=== PATIENT | female | born 1955 | race Caucasian/White ===

== ENCOUNTER 2019-04-01 09:06 | Day surgery (SDC) | payer MEDICARE ==
[2019-03-27 11:43] VITALS: BMI 25.4
[2019-04-01] MEDS ORDERED: Fentanyl 100 MCG/2 ML VIAL ONE ×2 (09:28→11:14)
[2019-04-01] MEDS ORDERED: Midazolam HCl 2 mg/2 ml Vial ONE (09:28)
[2019-04-01] MEDS ORDERED: Heparin 5,000 UNITS/ML VIAL ONE (10:07)
[2019-04-01] MEDS ORDERED: HYDROcodone/Acetaminophen 10/325 mg Tablet PO PRN ×2 (10:22)
[2019-04-01] MEDS ORDERED: Ropivacaine 0.2% 550 ML 550 ML NERVE BLCK SCH (10:22)
[2019-04-01] MEDS ORDERED: Promethazine HCl 25 MG/ML VIAL IM PRN (10:22)
[2019-04-01] MEDS ORDERED: Ondansetron PF 4 MG/2 ML Vial IVP PRN (10:22)
[2019-04-01] MEDS ORDERED: traMADol HCl 50 MG TAB PO PRN ×2 (10:22)
[2019-04-01] MEDS ORDERED: Zolpidem Tartrate 5 MG TAB PO PRN (10:22)
[2019-04-01] MEDS ORDERED: Acetaminophen 325 MG TAB PO PRN (10:23)
[2019-04-01] MEDS ORDERED: Fentanyl 100 MCG/2 ML VIAL SLOW IVP PRN (10:23)
[2019-04-01] MEDS ORDERED: Bupivacaine 0.25% HCL 30 ML VIAL ONE (10:58)
[2019-04-01] MEDS ORDERED: Lidocaine 1% w/Epinephrine 1:100K 20 ML VIAL ONE (10:58)
[2019-04-01] MEDS ORDERED: Sodium Chloride 0.9% 0 ML ONE ×2 (10:58→14:54)
[2019-04-01] MEDS ORDERED: Gentamicin 80 MG/2 ML VIAL ONE (10:58)
[2019-04-01] MEDS ORDERED: Ropivacaine 0.2% HCl/PF 0 ML ONE (11:47)
[2019-04-01] MEDS ORDERED: Ketorolac Tromethamine 30 MG/ML VIAL IVP SCH (12:00)
[2019-04-01] MEDS ORDERED: Ondansetron PF 4 MG/2 ML Vial ONE (14:10)
[2019-04-01] MEDS ORDERED: PROPOFOL 200 MG/20 ML VIAL ONE (14:10)
[2019-04-01] MEDS ORDERED: Dexamethasone 20 MG/5 ML VIAL ONE (14:10)
[2019-04-01] MEDS ORDERED: Lidocaine 1% PF 5 ML VIAL ONE (14:10)
[2019-04-01] MEDS ORDERED: Ropivacaine 0.2% HCl/PF (40 MG/20 ML VIAL) ONE (14:10)
[2019-04-01] MEDS ORDERED: Ropivacaine 0.5% HCl/PF (150 MG/30 ML VIAL) ONE (14:10)
[2019-04-01] MEDS ORDERED: Sodium Chloride 0.9% 10 ML ONE (14:55)
--- NOTE | 2019-04-01 18:54 | OP ---
DATE OF PROCEDURE: 04/01/2019 PREOPERATIVE DIAGNOSIS: Left breast cancer. POSTOPERATIVE DIAGNOSIS: Left breast cancer. PROCEDURE PERFORMED: Placement of left tissue building construction supervisor for breast reconstruction ([id number]). OPERATIVE FINDINGS: Left breast tissue building construction supervisor, reference #[id number], serial #[id number] filled to a volume of 500 mL. DESCRIPTION OF PROCEDURE: Following induction of adequate anesthesia, the patient was prepped and draped in usual sterile fashion in the supine position. The existing inframammary crease scar was incised. Dissection was carried sharply down through the subcutaneous tissue to identify the pectoralis fascia. Subsequently, an adequate prepectoral pocket was created. Pocket was copiously irrigated and inspected with triple antibiotic solution and dilute Betadine solution prior to placement of antibiotic beads and building construction supervisor. The building construction supervisor was secured in the proper position using interrupted 2-0 Prolene suture at the suture tabs. The incision was then closed in layers using 2-0 and 3-0 PDS suture for the deeper layers followed by 4-0 Monocryl for the skin. Job ID: [id number]
== END 2019-04-01 15:14 | disposition home or self-care (01) ==
LOC: SDC 09:06
PROVIDERS: ATTEND Plastic Surgery
PROC: 0HHU0NZ Insertion of Tissue Expander into Left Breast, Open Approach (ICD-10-PCS; principal; 2019-04-01)
DX: C50.912 Malignant neoplasm of unspecified site of left female breast (principal); E78.5 Hyperlipidemia, unspecified; E03.9 Hypothyroidism, unspecified; E66.3 Overweight; Z68.25 Body mass index [BMI] 25.0-25.9, adult; Z79.2 Long term (current) use of antibiotics; Z79.811 Long term (current) use of aromatase inhibitors; Z79.899 Other long term (current) drug therapy
CPT/HCPCS: 19357; 93005; A4306; 93010; C1713; J0690; J1100; J1580; J1644; J2001; J2250; J2405; J2704; J2795; J3010; J3370; J3490; S0020

== ENCOUNTER → 2019-09-11 | Outpatient (CLI) | payer MEDICARE, OTHER ==
[2019-09-11 17:17] LABS: SARS-CoV-2 MS2 Positive; SARS-CoV-2 N Gene Negative; SARS-CoV-2 S Gene Negative; SARS-CoV-2 orf1ab Negative
== END ==
LOC: LABBT 17:13
PROVIDERS: ATTEND Plastic Surgery
DX: Z01.812 Encounter for preprocedural laboratory examination (principal); Z11.59 Encounter for screening for other viral diseases; Z85.3 Personal history of malignant neoplasm of breast
CPT/HCPCS: 87635; U0003

== ENCOUNTER 2019-09-16 07:57 | Day surgery (SDC) | payer MEDICARE ==
[2019-09-11 11:23] VITALS: BMI 26.6
[2019-09-16] MEDS ORDERED: Heparin 5,000 UNITS/ML VIAL ONE (09:24)
[2019-09-16] MEDS ORDERED: Lidocaine 1% PF 5 ML VIAL ONE (10:11)
[2019-09-16] MEDS ORDERED: Ondansetron PF 4 MG/2 ML Vial ONE (10:11)
[2019-09-16] MEDS ORDERED: PROPOFOL 200 MG/20 ML VIAL ONE (10:11)
[2019-09-16] MEDS ORDERED: Dexamethasone 20 MG/5 ML VIAL ONE (10:11)
[2019-09-16] MEDS ORDERED: EPINEPHrine 1 MG/ML AMP ONE (10:36)
[2019-09-16] MEDS ORDERED: Bupivacaine 0.25% HCL 30 ML VIAL ONE (10:36)
[2019-09-16] MEDS ORDERED: Gentamicin 80 MG/2 ML VIAL ONE (10:44)
[2019-09-16] MEDS ORDERED: Fentanyl 100 MCG/2 ML VIAL ONE (11:25)
[2019-09-16] MEDS ORDERED: HYDROcodone/Acetaminophen 5/325 mg Tablet ONE (13:40)
--- NOTE | 2019-09-17 07:13 | OP ---
DATE OF PROCEDURE: 09/16/2019 PREOPERATIVE DIAGNOSIS: Left breast cancer. POSTOPERATIVE DIAGNOSIS: Left breast cancer. PROCEDURES PERFORMED: 1. Replacement of left tissue production truck driver with capsular work (39910). 2. Fat grafting, left breast (70 mL) ([id number], [id number]). DESCRIPTION OF PROCEDURE: Following the induction of adequate anesthesia, the patient was prepped and draped in the usual sterile fashion in supine position. The inframammary crease scar incision was made. Dissection was carried sharply down through the subcutaneous tissue to the underlying implant capsule, which was incised. The existing production truck driver was deflated and removed. The pocket was opened superiorly. A sizer was used to determine what implant would give the best symmetry. A [place] (reference number [id number], serial number [id number]) was chosen. It was placed after copious irrigation with antibiotic and dilute Betadine solution. The pocket was then closed with 3-0 PDS suture and 3-0 Monocryl suture. Attention was turned to the fat grafting. The abdomen was infiltrated. After the tumescent fluid had adequate time to take effect, a traditional liposuction was done with harvesting the fat. The fat was then injected in the subcutaneous plane using a micro-droplet technique over the inner as well as the upper two quadrants of the breast. 70 mL of fat was injected in total. This was done through a remote stab incision. All stab incisions were closed with 5-0 fast gut suture. The patient tolerated the procedure well. Job ID: [id number]
== END 2019-09-16 15:25 | disposition home or self-care (01) ==
LOC: SDC 07:57
PROVIDERS: ATTEND Plastic Surgery
PROC: 0HPU0JZ Removal of Synthetic Substitute from Left Breast, Open Approach (ICD-10-PCS; principal; 2019-09-16)
PROC: 0HRU0JZ Replacement of Left Breast with Synthetic Substitute, Open Approach (ICD-10-PCS; 2019-09-16)
PROC: 0HRU37Z Replacement of Left Breast with Autologous Tissue Substitute, Percutaneous Approach (ICD-10-PCS; 2019-09-16)
DX: C50.912 Malignant neoplasm of unspecified site of left female breast (principal); E07.9 Disorder of thyroid, unspecified; Z79.2 Long term (current) use of antibiotics; Z79.811 Long term (current) use of aromatase inhibitors; Z79.899 Other long term (current) drug therapy
CPT/HCPCS: 15771; 15772; 19342; C1789; J0171; J0690; J1100; J1580; J1642; J1644; J2001; J2405; J2704; J3010; J3370; S0020

== ENCOUNTER 2021-01-14 07:24 | Outpatient (CLI) | payer MEDICARE | END 2021-01-14 07:25 | disposition home or self-care (01) | LOC: BICMRI 07:24 | PROVIDERS: ATTEND Internal Medicine Hematology & Oncology | DX: C50.112 Malignant neoplasm of central portion of left female breast (principal); Z15.01 Genetic susceptibility to malignant neoplasm of breast | CPT/HCPCS: 82565; C8908; A9577 ==

== ENCOUNTER 2022-06-17 09:31 | Day surgery (SDC) | payer MEDICARE ==
[2022-06-16 13:05] VITALS: BMI 28.3
[2022-06-17] MEDS ORDERED: Heparin 5,000 UNITS/ML VIAL ONE (09:55)
[2022-06-17] MEDS ORDERED: Bupivacaine/Epinephrine 0.25% 30 ML VIAL ONE (11:35)
[2022-06-17] MEDS ORDERED: EPINEPHrine 1 MG/ML AMP ONE (11:35)
[2022-06-17] MEDS ORDERED: Lidocaine 1% (PF) 30 ML VIAL ONE (11:35)
[2022-06-17] MEDS ORDERED: Gentamicin 80 MG/2 ML VIAL ONE (11:35)
[2022-06-17] MEDS ORDERED: Bacitracin Zinc Ointment 30 gm TUBE ONE (11:35)
[2022-06-17] MEDS ORDERED: fentaNYL PF 100 MCG/2 ML SYRINGE ONE (11:55)
[2022-06-17] MEDS ORDERED: Dexmedetomidine 200 MCG/2 ML VIAL ONE (11:55)
[2022-06-17] MEDS ORDERED: CEFAZOLIN 2 GM VIAL ONE (12:09)
[2022-06-17] MEDS ORDERED: Sodium Chloride 0.9% 100 ML ONE (12:09)
[2022-06-17] MEDS ORDERED: Glycopyrrolate 0.2 MG/ML 5 ML SYRINGE ONE (12:20)
[2022-06-17] MEDS ORDERED: Ondansetron PF 4 MG/2 ML Vial ONE (12:20)
[2022-06-17] MEDS ORDERED: PHENYLEPHRINE-NS 100 MCG/ML 10 ML SYRINGE ONE (12:20)
[2022-06-17] MEDS ORDERED: Lidocaine 1% PF 5 ML VIAL ONE (12:20)
[2022-06-17] MEDS ORDERED: PROPOFOL 200 MG/20 ML VIAL ONE (12:20)
[2022-06-17] MEDS ORDERED: Tranexamic Acid 1,000 MG/10 ML VIAL ONE (13:03)
[2022-06-17] MEDS ORDERED: HYDROmorphone 0.5 MG/0.5 ML SYRINGE ONE (13:12)
[2022-06-17] MEDS ORDERED: Nitroglycerin 2% Ointment 1 INCH/1 GM Packet ONE (15:05)
== END 2022-06-17 17:24 | disposition home or self-care (01) ==
LOC: SDC 09:31
PROVIDERS: ATTEND Plastic Surgery
PROC: 0HBT0ZZ Excision of Right Breast, Open Approach (ICD-10-PCS; principal; 2022-06-17)
DX: N65.1 Disproportion of reconstructed breast (principal); E07.9 Disorder of thyroid, unspecified; Z85.3 Personal history of malignant neoplasm of breast; Z79.2 Long term (current) use of antibiotics; Z79.890 Hormone replacement therapy; Z79.899 Other long term (current) drug therapy
CPT/HCPCS: 88305; J0171; J1170; J1580; J1644; J2001; J2405; J2704; J3371; J3490

== ENCOUNTER 2023-02-15 12:41 | Outpatient (CLI) | payer MEDICARE | END 2023-02-15 12:42 | disposition home or self-care (01) | LOC: BICMAMMO 12:41 | PROVIDERS: ATTEND Internal Medicine Hematology & Oncology | DX: C50.112 Malignant neoplasm of central portion of left female breast (principal); Z14.8 Genetic carrier of other disease; N63.21 Unspecified lump in the left breast, upper outer quadrant | CPT/HCPCS: 77065; 82565; C8908; G0279; A9577 ==